=== PATIENT | male | born 1965 | race Caucasian/White ===

== ENCOUNTER → 2017-03-14 | Outpatient (CLI) | payer OTHER | END | disposition home or self-care (01) | LOC: CFH 15:53 | PROVIDERS: ATTEND Specialist | DX: R90.82 White matter disease, unspecified (principal); G93.9 Disorder of brain, unspecified | CPT/HCPCS: 70551 ==

== ENCOUNTER → 2018-09-28 | Outpatient (CLI) | payer OTHER | END | disposition home or self-care (01) | LOC: CFH 15:33 | PROVIDERS: ATTEND Specialist | DX: G35 Multiple sclerosis (principal) | CPT/HCPCS: 70551 ==